=== PATIENT | male | born 1955 | race Caucasian/White ===

== ENCOUNTER 2018-07-03 08:37 | Inpatient (IN) | payer BC, OTHER ==
[2018-07-03 09:21] LABS: ADD MAN DIFF? NO
[2018-07-03 09:26] LABS: BASO % 1 % (0-3); EOS # 0.1 x10^3/uL (0.0-0.7); EOS % 2 % (0-3); HEMATOCRIT 44.9 % (39.0-53.0); HEMOGLOBIN 15.3 g/dL (13.0-17.5); LYMPH # 1.1 x10^3/uL (1.0-4.8); LYMPH % 18 % (24-48); MEAN CORPUSCULAR HEMOGLOBIN 30 pg (25-35); MEAN CORPUSCULAR HGB CONC 34 g/dL (31-37); MEAN CORPUSCULAR VOLUME 87 fL (79-100); MONO # 0.5 x10^3/uL (0.0-1.1); MONO % 8 % (0-9); NEUT # 4.4 x10^3uL (1.8-7.7); NEUT % 71 % (31-73); PLATELET COUNT 233 x10^3/uL (140-400); RED BLOOD COUNT 5.14 x10^6/uL (4.30-5.70); RED CELL DISTRIBUTION WIDTH 13.1 % (11.5-14.5); WHITE BLOOD COUNT 6.2 x10^3/uL (4.0-11.0)
[2018-07-03 09:57] LABS: ANION GAP 8 (6-14); BLOOD UREA NITROGEN 14 mg/dL (8-26); CALCIUM 9.5 mg/dL (8.5-10.1); CARBON DIOXIDE 28 mmol/L (21-32); CHLORIDE 104 mmol/L (98-107); GLUCOSE 103 mg/dL (70-99); POTASSIUM 4.3 mmol/L (3.5-5.1); SODIUM 140 mmol/L (136-145)
[2018-07-03] MEDS: ASPIRIN CHEWABLE 81 MG TABLET. PO (09:58)
[2018-07-03 10:07] LABS: TROPONINI < 0.017 ng/mL (0.000-0.055)
[2018-07-03 14:32] LABS: CHOLESTEROL 210 mg/dL (0-200); HDLC 39 mg/dL (40-60); LDLC 152 mg/dL (0-100); NON-HDL CHOLESTEROL 171 mg/dL (0-129); TRIGLYCERIDES 93 mg/dL (0-150); VLDLC 19 mg/dL (0-40)
[2018-07-03 14:33] LABS: CHOLESTEROL/HDL RATIO 5.4
[2018-07-03 14:40] LABS: THYROID STIM HORMONE (TSH) 1.757 uIU/mL (0.358-3.74)
[2018-07-03] MEDS ORDERED: hydrALAZINE 20 MG/ML VIAL. IVP (14:45)
[2018-07-03] MEDS: hydroCHLOROthiazide 12.5 MG CAPSULE PO (17:11)
[2018-07-03] MEDS: LISINOPRIL 10 MG TABLET PO (17:12)
[2018-07-03 19:16] LABS: BILIRUBIN,URINE NEGATIVE (NEG); CLARITY,URINE CLEAR; COLOR,URINE YELLOW; GLUCOSE,URINE NEGATIVE (NEG); NITRITE,URINE NEGATIVE (NEG); PROTEIN,URINE NEGATIVE (NEG-TRACE); UROBILINOGEN,URINE 0.2 mg/dL (0.2 mg/dL)
[2018-07-03 19:21] LABS: BACTERIA,URINE 0 /HPF (0-FEW); RBC,URINE 0 /HPF (0-2); SQUAMOUS EPITHELIAL CELL,UR FEW /LPF; WBC,URINE OCC /HPF (0-4)
[2018-07-03 22:04] LABS: TROPONINI 0.025 ng/mL (0.000-0.055)
[2018-07-04] MEDS: hydroCHLOROthiazide 12.5 MG CAPSULE PO (07:18)
[2018-07-04] MEDS: LISINOPRIL 10 MG TABLET PO (08:24)
== END 2018-07-04 13:00 | disposition home or self-care (01) | DRG 641 ==
LOC: ER 08:37 → 2 SOUTH 10:32
DX: E86.0 Dehydration (principal); G47.33 Obstructive sleep apnea (adult) (pediatric); I10 Essential (primary) hypertension; M19.90 Unspecified osteoarthritis, unspecified site; K21.9 Gastro-esophageal reflux disease without esophagitis; Z79.899 Other long term (current) drug therapy
CPT/HCPCS: 36415; 70450; 71046; 80048; 80061; 81001; 84443; 84484; 85025; 93005; 93306; 94799; 99285; 99285-25